=== PATIENT | female | born 1995 | race Hispanic/Latino ===

== ENCOUNTER 2018-03-19 07:31 | Emergency (ER) | payer BC ==
[2018-03-19 07:54] LABS: APPEARANCE,URINE Clear (CLEAR); BILIRUBIN,URINE Negative (NEGATIVE); COLOR,URINE Yellow (YELLOW); GLUCOSE, URINE (UA) Negative (NEGATIVE); KETONES,URINE Negative (NEGATIVE); LEUKOCYTE ESTERASE ,URINE Trace (NEGATIVE); NITRATE,URINE Negative (NEGATIVE); OCCULT BLOOD,URINE Negative (NEGATIVE); PROTEIN,URINE Negative (NEGATIVE); UROBILINOGEN,URINE 0.2 mg/dL (0.2-1.0)
[2018-03-19 07:55] LABS: HCG,QUAL RESULT NEGATIVE (NEGATIVE)
[2018-03-19 08:02] LABS: BACTERIA,URINE Rare /HPF (None Seen); RBC,URINE 0-1 /HPF (0-1); WBC,URINE 0-1 /HPF (0-1)
[2018-03-19 08:03] LABS: SQUAMOUS EPITHELIAL CELL,UR Few /HPF (0-2)
[2018-03-19] MEDS ORDERED: HYOSCYAMINE SULFATE 0.125 MG TAB.SUBL SL ONE (08:23)
[2018-03-19 08:37] LABS: BASOPHILS % (AUTO) 0.6 % (0.0-5.0); EOSINOPHILS % (AUTO) 2.1 % (0.0-8.0); LYMPHOCYTES % (AUTO) 22.9 % (21.0-51.0); MEAN CORPUSCULAR HEMOGLOBIN 28.5 pg (27.0-33.0); MEAN CORPUSCULAR HGB CONC 33.8 g/dL (32.0-36.0); MEAN CORPUSCULAR VOLUME 84.3 fL (79-99); MONOCYTES % (AUTO) 9.3 % (3.0-13.0); NEUTROPHILS % (AUTO) 65.1 % (40.0-77.0); PLATELET COUNT (AUTO) 322 K/uL (130-400); RED BLOOD CELL COUNT(AUTO) 4.86 MIL/uL (4.00-5.50); WHITE BLOOD COUNT (AUTO) 7.8 K/uL (4.8-10.8)
[2018-03-19 08:43] LABS: CREATININE 0.6 mg/dL (0.5-1.5); POTASSIUM 3.9 mmol/L (3.5-5.1)
[2018-03-19 08:48] LABS: ALBUMIN 3.8 g/dL (3.5-5.0); BILIRUBIN,TOTAL 0.3 mg/dL (0.2-1.0); TOTAL PROTEIN, SERUM 8.1 g/dL (6.0-8.3)
== END 2018-03-19 09:23 | disposition home or self-care (01) ==
LOC: EDH 07:31
DX: R10.30 Lower abdominal pain, unspecified (principal); R14.0 Abdominal distension (gaseous); M54.5 Low back pain
CPT/HCPCS: 36415; 80053; 81001; 81025; 82150; 83690; 85025

== ENCOUNTER 2018-03-19 14:24 | Emergency (ER) | payer BC | END 2018-03-19 14:37 | disposition left against medical advice (07) | LOC: EDH 14:24 | DX: Z53.21 Procedure and treatment not carried out due to patient leaving prior to being seen by health care provider (principal) ==

== ENCOUNTER 2020-02-13 21:15 | Emergency (ER) | payer BC, MEDICAID ==
[2020-02-13 22:11] LABS: BASOPHILS % (AUTO) 0.4 % (0.0-5.0); EOSINOPHILS % (AUTO) 1.8 % (0.0-8.0); HEMATOCRIT 41.1 % (36-48); LYMPHOCYTES % (AUTO) 24.5 % (21.0-51.0); MEAN CORPUSCULAR HEMOGLOBIN 28.8 pg (27.0-33.0); MEAN CORPUSCULAR HGB CONC 32.8 g/dL (32.0-36.0); MEAN CORPUSCULAR VOLUME 87.8 fL (79-99); MONOCYTES % (AUTO) 8.1 % (3.0-13.0); NEUTROPHILS % (AUTO) 64.9 % (40.0-77.0); PLATELET COUNT (AUTO) 354 K/uL (130-400); RED BLOOD CELL COUNT(AUTO) 4.68 MIL/uL (4.00-5.50); RED CELL DISTRIBUTION WIDTH 13.2 % (11.0-15.5); WHITE BLOOD COUNT (AUTO) 9.8 K/uL (4.8-10.8)
[2020-02-13 22:21] LABS: CREATININE 0.7 mg/dL (0.5-1.5); POTASSIUM 3.4 mmol/L (3.5-5.1)
[2020-02-13 22:47] LABS: BILIRUBIN,TOTAL 0.3 mg/dL (0.2-1.0); TOTAL PROTEIN, SERUM 8.4 g/dL (6.0-8.3)
== END 2020-02-13 23:32 | disposition home or self-care (01) ==
LOC: EDH 21:15
DX: O20.0 Threatened abortion (principal); Z3A.01 Less than 8 weeks gestation of pregnancy
CPT/HCPCS: 36415; 76801; 80053; 84702; 85025; 86850; 86900; 86901

== ENCOUNTER 2021-10-08 17:45 | Emergency (ER) | payer BC, MEDICAID ==
[~2021-10-08] VITALS: Ht 160 cm; Wt 98.0 kg
[2021-10-08 18:21] LABS: HCG,QUALITATIVE URINE NEGATIVE (NEGATIVE)
[2021-10-08] MEDS ORDERED: 0.9%NACL 1000ML 1,000 ML IV ONE (18:30)
[2021-10-08 18:40] LABS: BILIRUBIN,URINE Negative (NEGATIVE); COLOR,URINE Yellow (YELLOW); GLUCOSE, URINE (UA) Negative (NEGATIVE); KETONES,URINE Negative (NEGATIVE); LEUKOCYTE ESTERASE ,URINE Trace (NEGATIVE); NITRATE,URINE Negative (NEGATIVE); OCCULT BLOOD,URINE Negative (NEGATIVE); PH,URINE 6.5 (5.0-8.0); PROTEIN,URINE Negative (NEGATIVE); UROBILINOGEN,URINE 0.2 mg/dL (0.2-1.0)
[2021-10-08 18:41] LABS: APPEARANCE,URINE SLIGHTLY CLOUDY (CLEAR)
[2021-10-08 18:43] LABS: BASOPHILS % (AUTO) 0.6 % (0.0-5.0); EOSINOPHILS % (AUTO) 1.5 % (0.0-8.0); HEMATOCRIT 32.9 % (36-48); LYMPHOCYTES % (AUTO) 22.2 % (21.0-51.0); MEAN CORPUSCULAR HEMOGLOBIN 28.6 pg (27.0-33.0); MEAN CORPUSCULAR HGB CONC 32.2 g/dL (32.0-36.0); MEAN CORPUSCULAR VOLUME 88.9 fL (79-99); MONOCYTES % (AUTO) 8.7 % (3.0-13.0); NEUTROPHILS % (AUTO) 66.9 % (40.0-77.0); PLATELET COUNT (AUTO) 258 K/uL (130-400); RED CELL DISTRIBUTION WIDTH 13.2 % (11.0-15.5); WHITE BLOOD COUNT (AUTO) 7.2 K/uL (4.8-10.8)
[2021-10-08 18:43] LABS: BACTERIA,URINE Few /HPF (None Seen); RBC,URINE None Seen /HPF (0-1)
[2021-10-08 19:01] LABS: CREATININE 0.7 mg/dL (0.5-1.5); POTASSIUM 4.1 mmol/L (3.5-5.1)
[2021-10-08 19:06] LABS: ALBUMIN 4.2 g/dL (3.5-5.0); TOTAL PROTEIN, SERUM 8.1 g/dL (6.0-8.3)
[2021-10-08] MEDS ORDERED: MECLIZINE HCL 25 MG TABLET PO ONE (19:30)
[2021-10-08] MEDS ORDERED: ONDANSETRON 4MG INJ IVP ONE (19:30)
[2021-10-08] MEDS ORDERED: ONDA4TAB10 PO (20:35)
[2021-10-08 21:19] VITALS: BP 118/54
== END 2021-10-08 21:21 | disposition home or self-care (01) ==
LOC: EDH 17:45
DX: H81.12 Benign paroxysmal vertigo, left ear (principal); F41.9 Anxiety disorder, unspecified
CPT/HCPCS: 99283; 96374; 96361; 80053; 85025; 81001; 81025; 36415; J7030; J2405

== ENCOUNTER 2021-10-13 10:24 | Emergency (ER) | payer MEDICAID ==
[~2021-10-13] VITALS: Ht 160 cm; Wt 94.8 kg
[~2021-10-13 10:24] MED LIST: ONDA4TAB10 PO
[2021-10-13 11:17] LABS: CREATININE 0.7 mg/dL (0.5-1.5); POTASSIUM 3.6 mmol/L (3.5-5.1)
[2021-10-13 11:22] LABS: ALBUMIN 4.4 g/dL (3.5-5.0); TOTAL PROTEIN, SERUM 8.6 g/dL (6.0-8.3)
[2021-10-13 11:26] LABS: BASOPHILS % (AUTO) 0.4 % (0.0-5.0); EOSINOPHILS % (AUTO) 0.1 % (0.0-8.0); HEMATOCRIT 43.4 % (36-48); LYMPHOCYTES % (AUTO) 12.7 % (21.0-51.0); MEAN CORPUSCULAR HEMOGLOBIN 29.1 pg (27.0-33.0); MEAN CORPUSCULAR HGB CONC 33.6 g/dL (32.0-36.0); MEAN CORPUSCULAR VOLUME 86.6 fL (79-99); MONOCYTES % (AUTO) 4.6 % (3.0-13.0); NEUTROPHILS % (AUTO) 81.9 % (40.0-77.0); PLATELET COUNT (AUTO) 354 K/uL (130-400); RED BLOOD CELL COUNT(AUTO) 5.01 MIL/uL (4.00-5.50); WHITE BLOOD COUNT (AUTO) 9.7 K/uL (4.8-10.8)
[2021-10-13 11:37] LABS: BILIRUBIN,URINE NEGATIVE (NEGATIVE); COLOR,URINE YELLOW (YELLOW); GLUCOSE, URINE (UA) NEGATIVE (NEGATIVE); KETONES,URINE NEGATIVE (NEGATIVE); LEUKOCYTE ESTERASE ,URINE NEGATIVE (NEGATIVE); NITRATE,URINE NEGATIVE (NEGATIVE); OCCULT BLOOD,URINE NEGATIVE (NEGATIVE); PROTEIN,URINE NEGATIVE (NEGATIVE); UROBILINOGEN,URINE 0.2 mg/dL (0.2-1.0)
[2021-10-13 11:39] LABS: APPEARANCE,URINE CLEAR (CLEAR)
[2021-10-13 11:41] LABS: HCG,QUALITATIVE URINE NEGATIVE (NEGATIVE)
[2021-10-13] MEDS ORDERED: 0.9%NACL 1000ML 1,000 ML IV SCH (12:30)
[2021-10-13] MEDS ORDERED: PROMETHAZINE HCL 25 MG/ML 1ML AMPULE IVPB SCH (12:30)
[2021-10-13] MEDS ORDERED: KETOROLAC 30MG VIAL (30MG/ML) IVP ONE (12:30)
[2021-10-13] MEDS ORDERED: CYCLOBENZAPRINE HCL 10 MG TABLET PO ONE (12:30)
[2021-10-13 13:16] LABS: AMPHET/METH SCREEN,URINE NEGATIVE (NEGATIVE); BARBITURATE SCREEN, URINE NEGATIVE (NEGATIVE); BENZODIAZEPINES SCREEN,URINE NEGATIVE (NEGATIVE); CANNABINOID SCREEN,URINE NEGATIVE (NEGATIVE); COCAINE SCREEN,URINE NEGATIVE (NEGATIVE); OPIATE SCREEN,URINE NEGATIVE (NEGATIVE); PHENCYCLIDINE SCREEN,URINE NEGATIVE (NEGATIVE)
[2021-10-13] MEDS ORDERED: ONDA4TAB10 PO (14:04)
[2021-10-13] MEDS ORDERED: MECL-226 PO (14:04)
[2021-10-13] MEDS ORDERED: NAPR-1180 PO (14:04)
[2021-10-13 14:22] VITALS: BP 117/79
== END 2021-10-13 15:02 | disposition home or self-care (01) ==
LOC: EDH 10:24
DX: R42 Dizziness and giddiness (principal); G44.209 Tension-type headache, unspecified, not intractable; E86.0 Dehydration; A08.4 Viral intestinal infection, unspecified; Z20.822 Contact with and (suspected) exposure to COVID-19; F41.9 Anxiety disorder, unspecified; E66.9 Obesity, unspecified; Z68.37 Body mass index [BMI] 37.0-37.9, adult; Z79.899 Other long term (current) drug therapy
CPT/HCPCS: 99285; 70450; 71045; 87635; 84484; 80053; 80305; 85025; 87804 ×2; 81003; 81025; 36415; 93005; C9803; J1885; J2550

== ENCOUNTER 2021-11-04 08:16 | Emergency (ER) | payer MEDICAID, OTHER ==
[~2021-11-04] VITALS: Ht 160 cm; Wt 93.4 kg
[~2021-11-04 08:16] MED LIST changes: +MECL-226 PO; +NAPR-1180 PO
[2021-11-04 08:22] VITALS: BP 115/71
[2021-11-04 08:55] LABS: BASOPHILS % (AUTO) 0.6 % (0.0-5.0); EOSINOPHILS % (AUTO) 1.3 % (0.0-8.0); HEMATOCRIT 40.1 % (36-48); LYMPHOCYTES % (AUTO) 12.1 % (21.0-51.0); MEAN CORPUSCULAR HEMOGLOBIN 29.6 pg (27.0-33.0); MEAN CORPUSCULAR HGB CONC 33.4 g/dL (32.0-36.0); MEAN CORPUSCULAR VOLUME 88.5 fL (79-99); MONOCYTES % (AUTO) 7.5 % (3.0-13.0); NEUTROPHILS % (AUTO) 78.1 % (40.0-77.0); PLATELET COUNT (AUTO) 336 K/uL (130-400); RED BLOOD CELL COUNT(AUTO) 4.53 MIL/uL (4.00-5.50); RED CELL DISTRIBUTION WIDTH 13.1 % (11.0-15.5); WHITE BLOOD COUNT (AUTO) 8.4 K/uL (4.8-10.8)
[2021-11-04 09:00] LABS: APPEARANCE,URINE CLEAR (CLEAR); BILIRUBIN,URINE NEGATIVE (NEGATIVE); COLOR,URINE YELLOW (YELLOW); GLUCOSE, URINE (UA) NEGATIVE (NEGATIVE); KETONES,URINE NEGATIVE (NEGATIVE); LEUKOCYTE ESTERASE ,URINE NEGATIVE (NEGATIVE); NITRATE,URINE NEGATIVE (NEGATIVE); OCCULT BLOOD,URINE NEGATIVE (NEGATIVE); PH,URINE 6.5 (5.0-8.0); PROTEIN,URINE NEGATIVE (NEGATIVE); UROBILINOGEN,URINE 0.2 mg/dL (0.2-1.0)
[2021-11-04] MEDS ORDERED: 0.9%NACL 1000ML 1,000 ML IV ONE (09:00)
[2021-11-04 09:03] LABS: CREATININE 0.8 mg/dL (0.5-1.5); POTASSIUM 4.1 mmol/L (3.5-5.1)
[2021-11-04 09:05] LABS: HCG,QUALITATIVE URINE NEGATIVE (NEGATIVE)
[2021-11-04 09:07] LABS: ALBUMIN 4.2 g/dL (3.5-5.0); TOTAL PROTEIN, SERUM 7.7 g/dL (6.0-8.3)
[2021-11-04] MEDS ORDERED: DICL20GE TP (11:05)
== END 2021-11-04 11:21 | disposition home or self-care (01) ==
LOC: EDH 08:16
DX: G44.209 Tension-type headache, unspecified, not intractable (principal); Z79.1 Long term (current) use of non-steroidal anti-inflammatories (NSAID)
CPT/HCPCS: 99284; 96360; 70450; 80053; 85025; 81003; 81025; 36415; J7030

== ENCOUNTER 2021-11-16 11:32 | Emergency (ER) | payer MEDICAID ==
[~2021-11-16] VITALS: Ht 157.5 cm; Wt 92.1 kg
[~2021-11-16 11:32] MED LIST changes: +DICL20GE TP
[2021-11-16] MEDS ORDERED: DEXAMETHASONE SOD PHOSPHATE 4 MG/ML 1ML VIAL IM SCH (11:40)
[2021-11-16] MEDS ORDERED: KETOROLAC 30MG VIAL (30MG/ML) IM SCH (11:40)
[2021-11-16] MEDS ORDERED: DEXAMETHASONE SOD PHOSPHATE 4 MG/ML 1ML VIAL ONE (11:54)
[2021-11-16] MEDS ORDERED: KETOROLAC 30MG VIAL (30MG/ML) ONE (11:54)
[2021-11-16] MEDS ORDERED: PRED5TAB PO (12:18)
[2021-11-16] MEDS ORDERED: LORA10TA7 PO (12:18)
[2021-11-16 12:44] VITALS: BP 108/72
== END 2021-11-16 12:47 | disposition home or self-care (01) ==
LOC: EDH 11:32
DX: H69.83 Other specified disorders of Eustachian tube, bilateral (principal); Z79.1 Long term (current) use of non-steroidal anti-inflammatories (NSAID); Z79.52 Long term (current) use of systemic steroids
CPT/HCPCS: 81025; J1100; J1885

== ENCOUNTER 2021-12-03 20:08 | Emergency (ER) | payer MEDICAID ==
[~2021-12-03] VITALS: Ht 160 cm; Wt 92.1 kg
[~2021-12-03 20:08] MED LIST changes: +LORA10TA7 PO; +PRED5TAB PO
[2021-12-03 20:57] LABS: BASOPHILS % (AUTO) 0.5 % (0.0-5.0); EOSINOPHILS % (AUTO) 1.6 % (0.0-8.0); HEMATOCRIT 38.3 % (36-48); LYMPHOCYTES % (AUTO) 31.4 % (21.0-51.0); MEAN CORPUSCULAR HEMOGLOBIN 29.6 pg (27.0-33.0); MEAN CORPUSCULAR HGB CONC 33.7 g/dL (32.0-36.0); MEAN CORPUSCULAR VOLUME 87.8 fL (79-99); MONOCYTES % (AUTO) 10.4 % (3.0-13.0); NEUTROPHILS % (AUTO) 55.9 % (40.0-77.0); PLATELET COUNT (AUTO) 340 K/uL (130-400); RED BLOOD CELL COUNT(AUTO) 4.36 MIL/uL (4.00-5.50); RED CELL DISTRIBUTION WIDTH 12.9 % (11.0-15.5); WHITE BLOOD COUNT (AUTO) 10.6 K/uL (4.8-10.8)
[2021-12-03 21:04] LABS: CREATININE 0.7 mg/dL (0.5-1.5); POTASSIUM 3.1 mmol/L (3.5-5.1)
[2021-12-03 21:13] LABS: ALBUMIN 3.7 g/dL (3.5-5.0); TOTAL PROTEIN, SERUM 7.1 g/dL (6.0-8.3)
[2021-12-03 21:37] LABS: HCG,QUALITATIVE URINE NEGATIVE (NEGATIVE)
[2021-12-03 21:42] LABS: APPEARANCE,URINE CLEAR (CLEAR); BILIRUBIN,URINE NEGATIVE (NEGATIVE); COLOR,URINE COLORLESS (YELLOW); GLUCOSE, URINE (UA) NEGATIVE (NEGATIVE); KETONES,URINE NEGATIVE (NEGATIVE); LEUKOCYTE ESTERASE ,URINE 25 Leu/uL (NEGATIVE); NITRATE,URINE NEGATIVE (NEGATIVE); OCCULT BLOOD,URINE NEGATIVE (NEGATIVE); PH,URINE 5.5 (5.0-8.0); PROTEIN,URINE NEGATIVE (NEGATIVE); UROBILINOGEN,URINE 0.2 mg/dL (0.2-1.0)
[2021-12-03 22:02] LABS: BACTERIA,URINE RARE /HPF (None Seen); MUCUS,URINE RARE LPF (None Seen); SQUAMOUS EPITHELIAL CELL,UR RARE /HPF (0-2)
[2021-12-03] MEDS ORDERED: POTASSIUM BICARB/CIT AC 25 MEQ TABLET.EFF PO ONE (22:30)
[2021-12-03 22:34] VITALS: BP 122/68
== END 2021-12-03 22:59 | disposition home or self-care (01) ==
LOC: EDH 20:08
DX: R68.84 Jaw pain (principal); M79.602 Pain in left arm; R07.89 Other chest pain; Z79.899 Other long term (current) drug therapy
CPT/HCPCS: 36415; 80053; 81001; 81025; 84484; 85025; 93005

== ENCOUNTER 2021-12-15 19:13 | Emergency (ER) | payer MEDICAID ==
[~2021-12-15] VITALS: Ht 160 cm; Wt 93.9 kg
[2021-12-15 20:00] LABS: APPEARANCE,URINE CLEAR (CLEAR); BILIRUBIN,URINE NEGATIVE (NEGATIVE); COLOR,URINE COLORLESS (YELLOW); GLUCOSE, URINE (UA) NEGATIVE (NEGATIVE); KETONES,URINE NEGATIVE (NEGATIVE); LEUKOCYTE ESTERASE ,URINE NEGATIVE Leu/uL (NEGATIVE); NITRATE,URINE NEGATIVE (NEGATIVE); OCCULT BLOOD,URINE NEGATIVE (NEGATIVE); PROTEIN,URINE NEGATIVE (NEGATIVE); UROBILINOGEN,URINE 0.2 mg/dL (0.2-1.0)
[2021-12-15 20:06] LABS: HCG,QUALITATIVE URINE NEGATIVE (NEGATIVE)
[2021-12-15 21:00] LABS: BASOPHILS % (AUTO) 0.6 % (0.0-5.0); EOSINOPHILS % (AUTO) 1.8 % (0.0-8.0); HEMATOCRIT 39.6 % (36-48); LYMPHOCYTES % (AUTO) 32.3 % (21.0-51.0); MEAN CORPUSCULAR HEMOGLOBIN 29.8 pg (27.0-33.0); MEAN CORPUSCULAR HGB CONC 33.8 g/dL (32.0-36.0); MONOCYTES % (AUTO) 9.4 % (3.0-13.0); NEUTROPHILS % (AUTO) 55.8 % (40.0-77.0); PLATELET COUNT (AUTO) 309 K/uL (130-400); RED CELL DISTRIBUTION WIDTH 13.2 % (11.0-15.5); WHITE BLOOD COUNT (AUTO) 8.3 K/uL (4.8-10.8)
[2021-12-15] MEDS ORDERED: KETOROLAC 30MG VIAL (30MG/ML) IVP ONE (21:00)
[2021-12-15 21:10] LABS: CREATININE 0.6 mg/dL (0.5-1.5); POTASSIUM 3.4 mmol/L (3.5-5.1)
[2021-12-15] MEDS ORDERED: CEPH500B PO (21:48)
[2021-12-15 21:50] VITALS: BP 121/63
== END 2021-12-15 22:02 | disposition home or self-care (01) ==
LOC: EDH 19:13
DX: J01.90 Acute sinusitis, unspecified (principal); Z79.1 Long term (current) use of non-steroidal anti-inflammatories (NSAID); Z79.52 Long term (current) use of systemic steroids
CPT/HCPCS: 99284; 96374; 70450; 80048; 85025; 81003; 81025; 36415; J1885

== ENCOUNTER 2022-01-25 17:22 | Emergency (ER) | payer MEDICAID ==
[~2022-01-25] VITALS: Ht 157.5 cm; Wt 95.3 kg
[~2022-01-25 17:22] MED LIST changes: +CEPH500B PO
[2022-01-25 19:33] VITALS: BP 116/62
[2022-01-25] MEDS ORDERED: CYCL5TAB PO (19:50)
== END 2022-01-25 20:05 | disposition home or self-care (01) ==
LOC: EDH 17:22
DX: M62.838 Other muscle spasm (principal); R42 Dizziness and giddiness; Z79.1 Long term (current) use of non-steroidal anti-inflammatories (NSAID); Z79.52 Long term (current) use of systemic steroids; Z88.8 Allergy status to other drugs, medicaments and biological substances
CPT/HCPCS: 81025

== ENCOUNTER → 2022-05-09 | Outpatient (CLI) | payer MEDICAID ==
[~2022-05-09] MED LIST changes: +CYCL5TAB PO
== END | disposition home or self-care (01) ==
LOC: SHCH 10:51
PROVIDERS: ATTEND Internal Medicine
DX: R00.2 Palpitations (principal)
CPT/HCPCS: 93306

== ENCOUNTER 2022-07-07 09:08 | Emergency (ER) | payer MEDICAID ==
[~2022-07-07] VITALS: Ht 160 cm; Wt 95.3 kg
[2022-07-07 10:23] LABS: BASOPHILS % (AUTO) 0.6 % (0.0-5.0); HEMATOCRIT 43.9 % (36-48); LYMPHOCYTES % (AUTO) 18.1 % (21.0-51.0); MEAN CORPUSCULAR HEMOGLOBIN 29.3 pg (27.0-33.0); MEAN CORPUSCULAR HGB CONC 32.3 g/dL (32.0-36.0); MEAN CORPUSCULAR VOLUME 90.7 fL (79-99); MONOCYTES % (AUTO) 7.3 % (3.0-13.0); NEUTROPHILS % (AUTO) 71.6 % (40.0-77.0); PLATELET COUNT (AUTO) 327 K/uL (130-400); RED BLOOD CELL COUNT(AUTO) 4.84 MIL/uL (4.00-5.50); RED CELL DISTRIBUTION WIDTH 13.6 % (11.0-15.5); WHITE BLOOD COUNT (AUTO) 8.1 K/uL (4.8-10.8)
[2022-07-07 10:52] LABS: CREATININE 0.6 mg/dL (0.5-1.5); POTASSIUM 4.4 mmol/L (3.5-5.1)
[2022-07-07 10:56] LABS: ALBUMIN 3.8 g/dL (3.5-5.0); TOTAL PROTEIN, SERUM 7.9 g/dL (6.0-8.3)
[2022-07-07] MEDS ORDERED: 0.9%NACL 1000ML 1,000 ML IV ONE (13:00)
[2022-07-07] MEDS ORDERED: ONDANSETRON 4MG INJ IVP ONE (13:00)
[2022-07-07 13:05] LABS: APPEARANCE,URINE CLOUDY (CLEAR); BILIRUBIN,URINE NEGATIVE (NEGATIVE); COLOR,URINE BROWN (YELLOW); GLUCOSE, URINE (UA) NEGATIVE (NEGATIVE); KETONES,URINE NEGATIVE (NEGATIVE); LEUKOCYTE ESTERASE ,URINE 75 Leu/uL (NEGATIVE); NITRATE,URINE NEGATIVE (NEGATIVE); OCCULT BLOOD,URINE LARGE (NEGATIVE); PH,URINE 6.5 (5.0-8.0); PROTEIN,URINE 50 mg/dL (NEGATIVE); UROBILINOGEN,URINE 0.2 mg/dL (0.2-1.0)
[2022-07-07 13:08] LABS: HCG,QUALITATIVE URINE NEGATIVE (NEGATIVE)
[2022-07-07 13:10] LABS: MUCUS,URINE RARE LPF (None Seen); RBC,URINE TNTC /HPF (0-1); SQUAMOUS EPITHELIAL CELL,UR MOD /HPF (0-2); WBC,URINE 51-100 /HPF (0-1)
[2022-07-07] MEDS ORDERED: ONDA4TAB10 PO (13:30)
[2022-07-07 13:36] VITALS: BP 124/60
== END 2022-07-07 13:43 | disposition home or self-care (01) ==
LOC: EDH 09:08
DX: H81.10 Benign paroxysmal vertigo, unspecified ear (principal); Z88.8 Allergy status to other drugs, medicaments and biological substances; Z79.899 Other long term (current) drug therapy; Z98.890 Other specified postprocedural states
CPT/HCPCS: 99283; 80053; 83690; 85025; 87088; 81001; 81025; 36415; J2405

== ENCOUNTER 2022-10-28 11:47 | Emergency (ER) | payer MEDICAID ==
[~2022-10-28] VITALS: Ht 160 cm; Wt 95.3 kg
[2022-10-28 12:23] VITALS: BP 110/68; PULSE 73; RESP 18
== END 2022-10-28 14:21 | disposition home or self-care (01) ==
LOC: EDH 11:47
DX: O26.891 Other specified pregnancy related conditions, first trimester (principal); M79.18 Myalgia, other site; Z79.1 Long term (current) use of non-steroidal anti-inflammatories (NSAID); Z79.52 Long term (current) use of systemic steroids; Z88.8 Allergy status to other drugs, medicaments and biological substances
CPT/HCPCS: 99281

== ENCOUNTER 2023-01-04 19:40 | Emergency (ER) | payer MEDICAID | END 2023-01-04 21:01 | disposition left against medical advice (07) | LOC: EDH 19:40 | DX: R51.9 Headache, unspecified (principal); Z53.21 Procedure and treatment not carried out due to patient leaving prior to being seen by health care provider ==

== ENCOUNTER 2024-02-27 10:06 | Emergency (ER) | payer MEDICAID ==
[~2024-02-27] VITALS: Ht 157.5 cm; Wt 99.8 kg
[~2024-02-27 10:06] MED LIST changes: -CYCL5TAB PO; +CYCL5TAB3 PO; +ONDA-243 PO; -ONDA4TAB10 PO
--- NOTE | 2024-02-27 10:15 | ERN ---
ED Note History of Present Illness Stated Complaint: VAGINALBLEEDING Time Seen by MD: 10:09 Dictation: Patient is a 28-year-old female coming in today with complaints of vaginal bleeding onset Thursday. She states she is having no pain at this time. States her. He is not due for 10 more days. She has already been to the urgent care who did not have an carton filling machine operator and told her to go to the emergency room if she needed to be seen. Her primary care doctor is Zahra Zamora, she states she is not . Allergies: Coded Allergies: No Known Drug Allergies (Unverified Allergy, Unknown, 10/08/21) prednisone (Unverified Allergy, Unknown, 01/25/22) Home Meds Active Scripts Ondansetron (Ondansetron Odt) 4 Mg Tab.rapdis, 4 MG PO TID PRN for NA USEA/VOMITING, #10 TAB Prov:SARAN HANEY EYEGLASS INSPECTOR 07/07/22 Cyclobenzaprine HCl (Cyclobenzaprine HCl) 5 Mg Tablet, 10 MG PO every 8 hours for spasm pain, #21 TAB Prov:JEANNE MCKOY NP 01/25/22 Cephalexin Monohydrate (Keflex) 500 Mg Cap, 500 MG PO TID for 7 Days, #21 CAP 0 Refills Prov:LOC FRIEDMAN MD 12/15/21 Prednisone (Prednisone) 5 Mg Tablet, 5 MG PO BID for 10 Days, #20 TAB Prov:CHEKO QUIÑONES MD 11/16/21 Loratadine (Loratadine) 10 Mg Tablet, 10 MG PO DAILY for 30 Days, #30 TAB Prov:CHEKO QUIÑONES MD 11/16/21 Diclofenac Sodium (Voltaren Arthritis Pain) 20 Gm Gel..gram., 20 GM TP BID for 7 Days, #30 TUBE Prov:CHEKO QUIÑONES MD 11/04/21 Ondansetron (Ondansetron Odt) 4 Mg Tab.rapdis, 4 MG PO TIDP, #21 TAB Prov:DANO AVELAR 10/13/21 Naproxen (Naprosyn) 500 Mg Tablet, 500 MG PO BIDPC, #60 TAB Prov:DANO AVELAR 10/13/21 Meclizine HCl (Meclizine HCl) 12.5 Mg Tablet, 12.5 MG PO TID, #30 TAB Prov:DANO AVELAR 10/13/21 Ondansetron (Ondansetron Odt) 4 Mg Tab.rapdis, 4 MG PO TID PRN for NAUSEA/VOMITING, #15 TAB Prov:SARAN HANEY EYEGLASS INSPECTOR 10/08/21 Past Medical History Past Medical History: No Pertinent History Additional Past Medical Hx: VERTIGO Surgical History: None Surgical History Other: RT EAR TUBE PLACEMENT Family History: Negative Social History: Negative, Other History: Not Applicable RN Note Reviewed/Agreed w/PFSH: Yes Review of System Dictation CONSTITUTIONAL: Negative except for HPI HEAD/FACE: Negative except for HPI EENT: Negative except for HPI RESPIRATORY: Negative except for HPI GASTROINTESTINAL/ABDOMINAL: Negative except for HPI GENITOURINARY: Negative except for HPI vaginal bleeding MUSCULOSKELETAL: Negative except for HPI INTEGUMENTARY: Negative except for HPI NEUROLOGICAL/PSYCH: Negative except for HPI HEMATOLOGIC/LYMPHATIC: Negative except for HPI All Systems Negative, Except as noted above. 13 point review of systems assessed and all negative except for above. Initial Vital Sign VS Vital Signs Date Time Temp Pulse Resp B/P (MAP) Pulse Ox O2 Delivery O2 Flow Rate FiO2 02/27/24 10:34 74 16 74/107 99 Room Air 0 Physical Exam Dictation Vital Signs reviewed 0/10 pain General Appearance: Alert, oriented x 3, no acute distress, well developed, nourished. Head and Face: non-traumatic. Eyes: PERRL, pink conjunctivas, eyelid no trauma, anterior chamber with arcus senilis. Ears: Pinnas intact and no signs of trauma or erythema ear canals clear and no discharge TM no erythema Nose: No discharge, no bleeding. Oropharynx: Mouth normal, tongue pink, pharynx clear,no erythema, tonsils no exudates, no abscesses noted, mucous membrane moist Neck: Supple, non-tender, no thyromegaly, no masses, no JVD, no bruits Breast:Deferred Chest:No tenderness, no crepitus, no paradoxical movement, no retractions Lungs:Clear, well-ventilated, symmetric, no rales, no wheezing, no rhonchi, no stridor, good breath sounds bilaterally Heart: Regular rate, regular rhythm, no murmur, no gallops Vascular: no peripheral edema, Abdomen: Soft, positive bowel sounds, nondistended, no guarding, nontender, no rebound, no masses no hepatomegaly, no splenomegaly, no Rosario's sign, no hernias. Rectal: Deferred Genital: Deferred Neurological: Normal speech, motor function intact, sensory function intact Musculoskeletal: Neck nontender, full range of motion, back nontender, full range of motion, Extremities: nontender, full range of motion Skin: Color pink, dry, no turgor, no rash, no lacerations, no abrasions, no contusions. Lymphatic: Deferred Results (Laboratory/Radiology) Laboratory/Radiology Laboratory Tests Test 02/27/24 10:29 White Blood Count 6.6 K/uL (4.8-10.8) Red Blood Count 4.63 MIL/uL (4.00-5.50) Hemoglobin 13.3 g/dL (12.0-16.0) Hematocrit 41.1 % (36-48) Mean Corpuscular Volume 88.8 fL (79-99) Mean Corpuscular Hemoglobin 28.7 pg (27.0-33.0) Mean Corpuscular Hemoglobin Concent 32.4 g/dL (32.0-36.0) Red Cell Distribution Width 13.2 % (11.0-15.5) Platelet Count 314 K/uL (130-400) Mean Platelet Volume 9.6 fL (7.5-10.5) Immature Granulocyte % (Auto) 0.3 % (0-1) Neutrophils (%) (Auto) 57.1 % (40.0-77.0) Lymphocytes (%) (Auto) 29.1 % (21.0-51.0) Monocytes (%) (Auto) 9.5 % (3.0-13.0) Eosinophils (%) (Auto) 3.2 % (0.0-8.0) Basophils (%) (Auto) 0.8 % (0.0-5.0) Neutrophils # (Auto) 3.8 K/uL (1.8-7.7) Lymphocytes # (Auto) 1.9 K/uL (1.0-4.8) Monocytes # (Auto) 0.6 K/uL (0.1-1.0) Eosinophils # (Auto) 0.21 K/uL (0.00-0.70) Basophils # (Auto) 0.05 K/uL (0.00-0.20) Absolute Immature Granulocyte (auto 0.02 K/uL (0-1) Nucleated Red Blood Cells 0.0 % (0.0-0.19) Sodium Level 144 mmol/L (136-145) Potassium Level 4.1 mmol/L (3.5-5.1) Chloride Level 105 mmol/L (101-111) Carbon Dioxide Level 31 mmol/L (21-32) Blood Urea Nitrogen 15 mg/dL (7-18) Creatinine 0.6 mg/dL (0.5-1.0) Glomerular Filtration Rate Calc 125 mL/min (>90) Random Glucose 82 mg/dL (70-105) Total Calcium 8.9 mg/dL (8.5-10.1) Human Chorionic Gonadotropin, Quant 0 mIU/mL (0-5) Labs Reviewed?: Yes ED Course ED Course Orders Procedure Category Date Status Time Cbc With Differential LAB 02/27/24 Complete 10:13 Hcg,Quantitative LAB 02/27/24 Complete 10:13 Basic Metabolic Panel LAB 02/27/24 Complete 10:13 Urinalysis Profile LAB 02/27/24 Logged 11:35 Vital Signs Date Time Temp Pulse Resp B/P (MAP) Pulse Ox O2 Delivery O2 Flow Rate FiO2 02/27/24 10:34 74 16 74/107 99 Room Air 0 1152, patient is hemodynamically stable H&H is normal, no at this time patient will be discharged home with name of Dr. Beltran/obgyn nurse to follow up in the next several days. Medical Decision Making MDM Medical decision-making based on basic labs to rule out anemia/electrolyte imbalance and . All labs are normal, H&H is normal, no Patient discharged home with name of Dr. Laurent Beltran to follow up at [facility] in her leisure DX & DISP Disposition: Discharge Departure Impression: Primary Impression: Dysfunctional uterine bleeding Condition: Stable Additional Instructions: Follow-up with primary care provider in 1 to 2 days. Take medications as directed here in the emergency room. Okay to continue home medications unless otherwise discussed during your visit in the emergency room today. Return to your nearest emergency room if symptoms worsen or if there is no improvement. Call 911 if you need immediate assistance. Take Tylenol or Motrin [id number] as needed and if no contraindications are present. Increase oral hydration. A wound culture or urine culture was ordered here in the emergency room department please follow-up with primary care provider and advise them to get repeat ports from our facility. If you had any Paulo wrap/splints that were applied here, please do not remove them until you see your primary care or specialty. Call obgyn nurse doctor in the next 1-2 days for an appointment and follow up. Referrals: KATHY OHPSON MD (PCP) LAURENT BELTRAN MD Time of Disposition: 11:54 I have reviewed the case, and I agree with, Diagnosis and Plan MARGARITO DEAL NP Feb 27, 2024 10:15
[2024-02-27 10:44] LABS: BASOPHILS # (AUTO) 0.05 K/uL (0.00-0.20); BASOPHILS % (AUTO) 0.8 % (0.0-5.0); EOSINOPHILS # (AUTO) 0.21 K/uL (0.00-0.70); EOSINOPHILS % (AUTO) 3.2 % (0.0-8.0); HEMATOCRIT 41.1 % (36-48); IMMATURE GRANULOCYTE ABSOLUTE 0.02 K/uL (0-1); LYMPHOCYTES # (AUTO) 1.9 K/uL (1.0-4.8); LYMPHOCYTES % (AUTO) 29.1 % (21.0-51.0); MEAN CORPUSCULAR HEMOGLOBIN 28.7 pg (27.0-33.0); MEAN CORPUSCULAR HGB CONC 32.4 g/dL (32.0-36.0); MEAN CORPUSCULAR VOLUME 88.8 fL (79-99); MONOCYTES # (AUTO) 0.6 K/uL (0.1-1.0); MONOCYTES % (AUTO) 9.5 % (3.0-13.0); NEUTROPHILS # (AUTO) 3.8 K/uL (1.8-7.7); NEUTROPHILS % (AUTO) 57.1 % (40.0-77.0); PLATELET COUNT (AUTO) 314 K/uL (130-400); RED BLOOD CELL COUNT(AUTO) 4.63 MIL/uL (4.00-5.50); RED CELL DISTRIBUTION WIDTH 13.2 % (11.0-15.5); WHITE BLOOD COUNT (AUTO) 6.6 K/uL (4.8-10.8)
[2024-02-27 10:53] LABS: CREATININE 0.6 mg/dL (0.5-1.0); POTASSIUM 4.1 mmol/L (3.5-5.1)
[2024-02-27 12:04] LABS: BILIRUBIN,URINE NEGATIVE (NEGATIVE); GLUCOSE, URINE (UA) NEGATIVE (NEGATIVE); KETONES,URINE NEGATIVE (NEGATIVE); LEUKOCYTE ESTERASE ,URINE 250 Leu/uL (NEGATIVE); NITRATE,URINE NEGATIVE (NEGATIVE); OCCULT BLOOD,URINE LARGE (NEGATIVE); PH,URINE 5.5 (5.0-8.0); PROTEIN,URINE 20 mg/dL (NEGATIVE); UROBILINOGEN,URINE 0.2 mg/dL (0.2-1.0)
[2024-02-27 12:14] LABS: ADD UA MICROSCOPIC YES; APPEARANCE,URINE HAZY (CLEAR); COLOR,URINE LIGHT-RED (YELLOW)
[2024-02-27 12:18] LABS: BACTERIA,URINE RARE /HPF (None Seen); MUCUS,URINE RARE LPF (None Seen); RBC,URINE TNTC /HPF (0-1); SQUAMOUS EPITHELIAL CELL,UR FEW /HPF (0-2)
[2024-02-27] MEDS ORDERED: MACR100 PO (12:28)
[2024-02-27 12:50] VITALS: BP 135/84; PULSE 84; RESP 18; TEMP 98.3; O2SAT 98
== END 2024-02-27 12:51 | disposition home or self-care (01) ==
LOC: EDH 10:06
DX: N93.8 Other specified abnormal uterine and vaginal bleeding (principal); R10.2 Pelvic and perineal pain; Z79.1 Long term (current) use of non-steroidal anti-inflammatories (NSAID); Z79.52 Long term (current) use of systemic steroids; Z88.8 Allergy status to other drugs, medicaments and biological substances
CPT/HCPCS: 36415; 80048; 81001; 84702; 85025; 87086; 99283

== ENCOUNTER 2024-06-21 14:37 | Emergency (ER) | payer MEDICAID, OTHER ==
[~2024-06-21] VITALS: Ht 160 cm; Wt 98.9 kg
[~2024-06-21 14:37] MED LIST changes: +MACR100 PO
[2024-06-21 15:42] LABS: APPEARANCE,URINE CLEAR (CLEAR); BILIRUBIN,URINE NEGATIVE (NEGATIVE); COLOR,URINE COLORLESS (YELLOW); GLUCOSE, URINE (UA) NEGATIVE (NEGATIVE); KETONES,URINE NEGATIVE (NEGATIVE); LEUKOCYTE ESTERASE ,URINE NEGATIVE Leu/uL (NEGATIVE); NITRATE,URINE NEGATIVE (NEGATIVE); OCCULT BLOOD,URINE NEGATIVE (NEGATIVE); PH,URINE 6.5 (5.0-8.0); PROTEIN,URINE NEGATIVE (NEGATIVE); UROBILINOGEN,URINE 0.2 mg/dL (0.2-1.0)
[2024-06-21] MEDS: ondanSETRON 4MG INJ IVP ONE (15:42)
[2024-06-21] MEDS: 0.9%NACL 1000ML 1,000 ML IV ONE (15:42)
[2024-06-21] MEDS: PANTOPrazole 40 MG/VIAL IVP ONE (15:42)
[2024-06-21 15:43] LABS: BASOPHILS # (AUTO) 0.05 K/uL (0.00-0.20); BASOPHILS % (AUTO) 0.6 % (0.0-5.0); EOSINOPHILS # (AUTO) 0.21 K/uL (0.00-0.70); EOSINOPHILS % (AUTO) 2.5 % (0.0-8.0); HEMATOCRIT 42.8 % (36-48); IMMATURE GRANULOCYTE ABSOLUTE 0.02 K/uL (0-1); LYMPHOCYTES # (AUTO) 2.1 K/uL (1.0-4.8); LYMPHOCYTES % (AUTO) 24.8 % (21.0-51.0); MEAN CORPUSCULAR HEMOGLOBIN 28.1 pg (27.0-33.0); MEAN CORPUSCULAR HGB CONC 31.8 g/dL (32.0-36.0); MEAN CORPUSCULAR VOLUME 88.4 fL (79-99); MONOCYTES # (AUTO) 0.7 K/uL (0.1-1.0); MONOCYTES % (AUTO) 7.8 % (3.0-13.0); NEUTROPHILS # (AUTO) 5.5 K/uL (1.8-7.7); NEUTROPHILS % (AUTO) 64.1 % (40.0-77.0); PLATELET COUNT (AUTO) 318 K/uL (130-400); RED BLOOD CELL COUNT(AUTO) 4.84 MIL/uL (4.00-5.50); RED CELL DISTRIBUTION WIDTH 13.4 % (11.0-15.5); WHITE BLOOD COUNT (AUTO) 8.6 K/uL (4.8-10.8)
[2024-06-21 15:43] LABS: ADD UA MICROSCOPIC NO
[2024-06-21 15:46] LABS: HCG,QUALITATIVE URINE NEGATIVE (NEGATIVE)
[2024-06-21] MEDS: morPHINE 4 MG SYG IVP ONE (15:47)
--- NOTE | 2024-06-21 15:57 | HMCIMG ---
US ABDOMINAL RUQ\E\LTD HISTORY: Right upper quadrant pain COMPARISON: None TECHNIQUE: Right upper quadrant abdominal ultrasound study was performed. FINDINGS: Liver measures 17.4 cm. The visualized portion of the pancreas is within normal limits. Liver is echogenic consistent with liver parenchymal disease. No gallstone is seen. Common duct measures 5 mm. No evidence of gallbladder wall thickening is seen. Right kidney measures 11.1 x 4.2 x 4.5 cm. No hydronephrosis is seen of the right kidney. IMPRESSION: 1. No gallstones or ductal dilatation is seen. 2. No hydronephrosis is seen.
[2024-06-21 16:01] LABS: CREATININE 0.6 mg/dL (0.5-1.0); POTASSIUM 3.4 mmol/L (3.5-5.1)
[2024-06-21 16:05] LABS: ALBUMIN 3.8 g/dL (3.5-5.0); BILIRUBIN,DIRECT 0.1 mg/dL (0.0-0.3); BILIRUBIN,TOTAL 0.4 mg/dL (0.2-1.0); TOTAL PROTEIN, SERUM 7.7 g/dL (6.0-8.3)
[2024-06-21] MEDS ORDERED: ONDA-243 PO (16:48)
[2024-06-21] MEDS ORDERED: PANT20TA18 PO (16:48)
--- NOTE | 2024-06-21 16:48 | ERN ---
ED Note History of Present Illness Stated Complaint: NAUSEA,ABDOMINAL PAIN Chief Complaint: Abdominal Pain Time Seen by MD: 14:38 Time Seen by Midlevel: 14:38 Dictation: The patient is a 28-year-old female with no significant past medical history who presents to the emergency department with complaints of right upper abdominal pain , epigastric pain associated with nausea onset yesterday. Denies any fevers, vomiting or diarrhea, constipation. Allergies: Coded Allergies: No Known Drug Allergies (Unverified Allergy, Unknown, 10/08/21) prednisone (Unverified Allergy, Unknown, 01/25/22) Home Meds Active Scripts Ondansetron (Ondansetron Odt) 4 Mg Tab.rapdis, 4 MG PO Q6HPRN PRN for nausea, #16 TAB 0 Refills Prov:PEG MAURICIO BUTTER LIQUEFIER 06/21/24 Pantoprazole Sodium (Pantoprazole Sodium) 20 Mg Tablet.dr, 1 TAB PO DAILY for 30 Days, #30 TAB 0 Refills Prov:PEG MAURICIO BUTTER LIQUEFIER 06/21/24 Nitrofurantoin/Nitrofuran Mac (Macrobid) 100 Mg Cap, 1 CAP PO BID for 7 Days, #14 CAP 0 Refills Prov:MARGARITO DEAL LABOR CONTRACTOR 02/27/24 Ondansetron (Ondansetron Odt) 4 Mg Tab.rapdis, 4 MG PO TID PRN for NAUSEA/VOMITING, #10 TAB Prov:SARAN HANEY BUTTER LIQUEFIER 07/07/22 Cyclobenzaprine HCl (Cyclobenzaprine HCl) 5 Mg Tablet, 10 MG PO every 8 hours for spasm pain, #21 TAB Prov:JEANNE MCKOY NP 01/25/22 Cephalexin Monohydrate (Keflex) 500 Mg Cap, 500 MG PO TID for 7 Days, #21 CAP 0 Refills Prov:LOC FRIEDMAN MD 12/15/21 Prednisone (Prednisone) 5 Mg Tablet, 5 MG PO BID for 10 Days, #20 TAB Prov:CHEKO QUIÑONES MD 11/16/21 Loratadine (Loratadine) 10 Mg Tablet, 10 MG PO DAILY for 30 Days, #30 TAB Prov:CHEKO QUIÑONES MD 11/16/21 Diclofenac Sodium (Voltaren Arthritis Pain) 20 Gm Gel..gram., 20 GM TP BID for 7 Days, #30 TUBE Prov:CHEKO QUIÑONES MD 11/04/21 Ondansetron (Ondansetron Odt) 4 Mg Tab.rapdis, 4 MG PO TIDP, #21 TAB Prov:DANO AVELAR 10/13/21 Naproxen (Naprosyn) 500 Mg Tablet, 500 MG PO BIDPC, #60 TAB Prov:DANO AVELAR 10/13/21 Meclizine HCl (Meclizine HCl) 12.5 Mg Tablet, 12.5 MG PO TID, #30 TAB Prov:DANO AVELAR 10/13/21 Ondansetron (Ondansetron Odt) 4 Mg Tab.rapdis, 4 MG PO TID PRN for NA USEA/VOMITING, #15 TAB Prov:SARAN HANEY 10/08/21 Past Medical History Past Medical History: No Pertinent History Additional Past Medical Hx: VERTIGO Surgical History: None Surgical History Other: RT EAR TUBE PLACEMENT Family History: Negative Social History: Negative, Other History: Not Applicable LMP: Jun 14, 2024 : 5 Para: 3 Aborts: 2 RN Note Reviewed/Agreed w/PFSH: Yes Review of System Dictation Constitutional: Negative for fever,chills, and weight loss Eyes: Negative for injury, pain,redness, and discharge ENT: Negative for injury,pain or swelling Cardiovascular: Negative for chest pain, palpitations, and edema Respiratory: Negative for shortness of breath, cough, and wheezing, Abdomen/GI: Negative for vomiting, diarrhea, and constipation positive for abdominal pain, nausea, Back: Negative for injury and pain : Negative for injury, bleeding and discharge MS/Extremity: Negative for injury and deformity Skin: Negative for rash, and discoloration Neuro: Negative for headache, weakness, numbness, tingling, and seizure Psych: Negative for suicide ideation, homicidal ideation, and hallucinations Initial Vital Sign VS Vital Signs Date Time Temp Pulse Resp B/P (MAP) Pulse Ox O2 Delivery O2 Flow Rate FiO2 06/21/24 15:17 98.6 97 20 125/73 99 Room Air 0 06/21/24 16:40 21 Physical Exam Dictation Vital Signs reviewed General Appearance: Alert, oriented x 3, no acute distress, well developed, nourished. Head and Face: non-traumatic. Eyes: PERRL, pink conjunctivas, eyelid no trauma, anterior chamber with arcus senilis. Ears: Pinnas intact and no signs of trauma or erythema ear canals clear and no discharge TM no erythema Nose: No discharge, no bleeding. Oropharynx: Mouth normal, tongue pink. pharynx clear,no erythema, tonsils no exudates, no abscesses noted, mucous membrane moist Neck: Supple, non-tender, no thyromegaly, no masses, no JVD, no bruits Breast:Deferred Chest:No tenderness, no crepitus, no paradoxical movement, no retractions Lungs:Clear, well-ventilated, symmetric, no rales, no wheezing, no rhonchi, no stridor, good breath sounds bilaterally Heart: Regular rate, regular rhythm, no murmur, no gallops Vascular: no peripheral edema, Abdomen: Soft, positive bowel sounds, nondistended, no guarding, nontender, no rebound, no masses no hepatomegaly, no splenomegaly, no Rosario's sign, no hernias. Rectal: Deferred Genital: Deferred Neurological: Normal speech, motor function intact, sensory function intact Musculoskeletal: Neck nontender, full range of motion, back nontender, full range of motion, Extremities: nontender, full range of motion Skin: Color pink, dry, no turgor, no rash, no lacerations, no abrasions, no contusions. Lymphatic: Deferred Results (Laboratory/Radiology) Laboratory/Radiology Laboratory Tests Test 06/21/24 15:15 06/21/24 15:34 Urine Color COLORLESS (YELLOW) Urine Appearance CLEAR (CLEAR) Urine pH 6.5 (5.0-8.0) Urine Specific [place] 1.002 (1.001-1.031) Urine Protein NEGATIVE mg/dL (NEGATIVE) Urine Glucose (UA) NEGATIVE mg/dL (NEGATIVE) Urine Ketones NEGATIVE mg/dL (NEGATIVE) Urine Occult Blood NEGATIVE (NEGATIVE) Urine Nitrate NEGATIVE (NEGATIVE) Urine Bilirubin NEGATIVE mg/dL (NEGATIVE) Urine Urobilinogen 0.2 mg/dL (0.2-1.0) Urine Leukocyte Esterase NEGATIVE Barbara/uL Urine HCG, Qualitative NEGATIVE (NEGATIVE) White Blood Count 8.6 K/uL (4.8-10.8) Red Blood Count 4.84 MIL/uL (4.00-5.50) Hemoglobin 13.6 g/dL (12.0-16.0) Hematocrit 42.8 % (36-48) Mean Corpuscular Volume 88.4 fL (79-99) Mean Corpuscular Hemoglobin 28.1 pg (27.0-33.0) Mean Corpuscular Hemoglobin Concent 31.8 g/dL (32.0-36.0) L Red Cell Distribution Width 13.4 % (11.0-15.5) Platelet Count 318 K/uL (130-400) Mean Platelet Volume 9.9 fL (7.5-10.5) Immature Granulocyte % (Auto) 0.2 % (0-1) Neutrophils (%) (Auto) 64.1 % (40.0-77.0) Lymphocytes (%) (Auto) 24.8 % (21.0-51.0) Monocytes (%) (Auto) 7.8 % (3.0-13.0) Eosinophils (%) (Auto) 2.5 % (0.0-8.0) Basophils (%) (Auto) 0.6 % (0.0-5.0) Neutrophils # (Auto) 5.5 K/uL (1.8-7.7) Lymphocytes # (Auto) 2.1 K/uL (1.0-4.8) Monocytes # (Auto) 0.7 K/uL (0.1-1.0) Eosinophils # (Auto) 0.21 K/uL (0.00-0.70) Basophils # (Auto) 0.05 K/uL (0.00-0.20) Absolute Immature Granulocyte (auto 0.02 K/uL (0-1) Nucleated Red Blood Cells 0.0 % (0.0-0.19) Sodium Level 141 mmol/L (136-145) Potassium Level 3.4 mmol/L (3.5-5.1) L Chloride Level 102 mmol/L (101-111) Carbon Dioxide Level 27 mmol/L (21-32) Blood Urea Nitrogen 13 mg/dL (7-18) Creatinine 0.6 mg/dL (0.5-1.0) Glomerular Filtration Rate Calc 125 mL/min (>90) Random Glucose 86 mg/dL (70-105) Total Calcium 9.2 mg/dL (8.5-10.1) Total Bilirubin 0.4 mg/dL (0.2-1.0) Direct Bilirubin 0.1 mg/dL (0.0-0.3) Aspartate Amino Transf (AST/SGOT) 13 U/L (10-37) Alanine Aminotransferase (ALT/SGPT) 17 U/L (12-78) Alkaline Phosphatase 66 U/L (50-136) Total Protein 7.7 g/dL (6.0-8.3) Albumin 3.8 g/dL (3.5-5.0) Lipase 29 U/L (16-77) REASON: Adominal Pain ORDERING PHYSICIAN: PEG MAURICIO PROCEDURE: [id number] - US ABDOMINAL RUQ\LTD US ABDOMINAL RUQ\E\LTD HISTORY: Right upper quadrant pain COMPARISON: None TECHNIQUE: Right upper quadrant abdominal ultrasound study was performed. FINDINGS: Liver measures 17.4 cm. The visualized portion of the pancreas is within normal limits. Liver is echogenic consistent with liver parenchymal disease. No gallstone is seen. Common duct measures 5 mm. No evidence of gallbladder wall thickening is seen. Right kidney measures 11.1 x 4.2 x 4.5 cm. No hydronephrosis is seen of the right kidney. IMPRESSION: 1. No gallstones or ductal dilatation is seen. 2. No hydronephrosis is seen. Labs Reviewed?: Yes ED Course ED Course Orders Procedure Category Date Status Time Cbc With Differential LAB 06/21/24 Complete 14:56 ,Urine Test LAB 06/21/24 Complete 14:56 Urinalysis Profile LAB 06/21/24 Complete 14:56 Us Abdominal Ruq\Ltd US 06/21/24 Resulted 14:56 0.9%Nacl 1000ml (Ns PHA 06/21/24 Complete 1000ml) 15:00 Morphine 4mg Syg PHA 06/21/24 Complete (Morphine 4mg Syg) 15:00 Ondansetron 4mg Inj PHA 06/21/24 Complete (Zofran 4mg Inj) 15:00 Pantoprazole 40mg Inj PHA 06/21/24 Complete (Protonix 40mg Inj 15:00 Lipase LAB 06/21/24 Complete 14:56 Basic Metabolic Panel LAB 06/21/24 Complete 14:56 Hepatic Function Panel LAB 06/21/24 Complete 14:56 Current Medications Medications (Trade) Dose Ordered Sig/Nannette Route PRN Reason Start Time Stop Time Status Last Admin Dose Admin Morphine Sulfate (morPHINE 4MG SYG) 4 mg ONCE ONCE IVP 06/21/24 15:00 06/21/24 15:01 DC Ondansetron HCl (zoFRAN 4MG INJ) 4 mg ONCE ONCE IVP 06/21/24 15:00 06/21/24 15:01 DC 06/21/24 15:42 Pantoprazole Sodium (PROTonix 40MG INJ) 40 mg ONCE ONCE IVP 06/21/24 15:00 06/21/24 15:01 DC 06/21/24 15:42 Sodium Chloride 1,000 ml @ 0 mls/hr ONCE ONCE IV 06/21/24 15:00 06/21/24 15:01 DC 06/21/24 15:42 Vital Signs Date Time Temp Pulse Resp B/P (MAP) Pulse Ox O2 Delivery O2 Flow Rate FiO2 06/21/24 17:10 98.6 81 20 118/70 99 Room Air* 0 21 06/21/24 16:40 98.6 97 20 125/73 99 Room Air* 0 21 06/21/24 15:17 98.6 97 20 125/73 99 Room Air 0 Medical Decision Making MDM The patient is a 28-year-old female with no significant past medical history who presents to the emergency department with complaints of right upper abdominal pain , epigastric pain associated with nausea onset yesterday. Denies any fevers, vomiting or diarrhea, constipation. CBC showed no leukocytosis no anemia, chemistry showed mild hypokalemia, GFR of 125, normal AST ALT, negative lipase, urinalysis unremarkable. Ultrasound revealed no gallstones or ductal dilation no hydronephrosis. Patient reports improving in pain with medication. We will be discharged to follow up with PCP. Patient in no acute distress. Differential diagnosis: Gastroenteritis, cholelithiasis, cholecystitis, biliary colic, dehydration, gastritis Need for hospitalization: Patient does not meet criteria for hospitalization. There are no social concerns with this patient. DX & DISP Disposition: Discharge Departure Impression: Primary Impression: Gastritis Additional Impression: Abdominal pain Condition: Stable Scripts Ondansetron (Ondansetron Odt) 4 Mg Tab.rapdis 4 MG PO Q6HPRN PRN for nausea, #16 TAB 0 Refills Prov: PEG MAURICIO BUTTER LIQUEFIER 06/21/24 Pantoprazole Sodium (Pantoprazole Sodium) 20 Mg Tablet. 1 TAB PO DAILY for 30 Days, #30 TAB 0 Refills Prov: PEG MAURICIO 06/21/24 Additional Instructions: Please follow up with the primary doctor in 1-2 days. If symptoms worsen please return to ER. FOLLOW-UP WITH PRIMARY CARE PROVIDER IN 1 TO 2 DAYS. TAKE MEDICATIONS DIRECTED HERE IN THE EMERGENCY ROOM. OKAY TO CONTINUE HOME MEDICATIONS UNLESS OTHERWISE DISCUSSED DURING YOUR VISIT IN THE EMERGENCY ROOM TODAY. RETURN TO YOUR NEAREST EMERGENCY ROOM IF SYMPTOMS WORSEN OR IF THERE IS NO IMPROVEMENT. CALL 911 IF YOU NEED IMMEDIATE ASSISTANCE. TAKE TYLENOL OR MOTRIN [id number] NEEDED AND IF NO CONTRAINDICATIONS ARE PRESENT. INCREASE ORAL HYDRATION. A WOUND CULTURE OR URINE CULTURE WAS ORDERED HERE IN THE EMERGENCY ROOM DEPARTMENT PLEASE FOLLOW-UP WITH PRIMARY CARE PROVIDER AND ADVISE THEM TO GET REPEAT PORTS FROM OUR FACILITY. IF YOU HAD ANY [place] WRAP/SPLINTS THAT WERE APPLIED HERE, PLEASE DO NOT REMOVE THEM UNTIL YOU SEE YOUR PRIMARY CARE OR SPECIALTY. Referrals: KATHY HOPSON MD (PCP) Time of Disposition: 16:48 I have reviewed the case, and I agree with, Diagnosis and Plan I performed a substantive portion of the visit. I have reviewed and personally made and approve the management plan that is documented in the notes by myself with JAMISON/resident. I acknowledged full responsibility for the patient's management plan. PEG MAURICIO Jun 21, 2024 16:48 MINISTERIO STONE DO Jun 23, 2024 08:20
[2024-06-21 17:10] VITALS: BP 118/70; PULSE 81; RESP 20; TEMP 98.6; O2SAT 99
== END 2024-06-21 17:16 | disposition home or self-care (01) ==
LOC: EDH 14:37
DX: K29.70 Gastritis, unspecified, without bleeding (principal); Z79.1 Long term (current) use of non-steroidal anti-inflammatories (NSAID); Z79.52 Long term (current) use of systemic steroids; Z88.8 Allergy status to other drugs, medicaments and biological substances
CPT/HCPCS: 99285; 96374; 76705; 96361; 96375; 80076; 80048; 83690; 85025; 81003; 81025; 36415; J7030; J2405; J2470

== ENCOUNTER 2024-06-24 12:10 | Emergency (ER) | payer OTHER ==
[~2024-06-24] VITALS: Ht 160 cm; Wt 90.7 kg
[~2024-06-24 12:10] MED LIST changes: +PANT20TA18 PO
[2024-06-24 12:15] VITALS: BP 111/59; PULSE 88; RESP 16; TEMP 98.3
--- NOTE | 2024-06-24 13:03 | ERN ---
ED Note History of Present Illness Stated Complaint: SORE THROAT Chief Complaint: Sore Throat Time Seen by MD: 12:17 Time Seen by Midlevel: 12:17 Dictation: 28-year-old female with a history of gastritis, presents to the ED for evaluation of sore throat. Patient reports she was evaluated at PCP and given a road shot of Rocephin for possible infection. No shortness of breath. Patient was able to talk in full complete sentences without any respiratory distress. No fever, cough, congestion Allergies: Coded Allergies: prednisone (Unverified Allergy, Unknown, 01/25/22) Home Meds Active Scripts Ondansetron (Ondansetron Odt) 4 Mg Tab.rapdis, 4 MG PO Q6HPRN PRN for nausea, #16 TAB 0 Refills Prov:PEG MAURICIO DOG BEHAVIORIST 06/21/24 Pantoprazole Sodium (Pantoprazole Sodium) 20 Mg Tablet.dr, 1 TAB PO DAILY for 30 Days, #30 TAB 0 Refills Prov:PEG MAURICIO DOG BEHAVIORIST 06/21/24 Nitrofurantoin/Nitrofuran Mac (Macrobid) 100 Mg Cap, 1 CAP PO BID for 7 Days, #14 CAP 0 Refills Prov:MARGARITO DEAL FREELANCE PATTERNMAKER 02/27/24 Ondansetron (Ondansetron Odt) 4 Mg Tab.rapdis, 4 MG PO TID PRN for NAUSEA/VOMITING, #10 TAB Prov:SARAN HANEY DOG BEHAVIORIST 07/07/22 Cyclobenzaprine HCl (Cyclobenzaprine HCl) 5 Mg Tablet, 10 MG PO every 8 hours for spasm pain, #21 TAB Prov:JEANNE MCKOY NP 01/25/22 Cephalexin Monohydrate (Keflex) 500 Mg Cap, 500 MG PO TID for 7 Days, #21 CAP 0 Refills Prov:LOC FRIEDMAN MD 12/15/21 Prednisone (Prednisone) 5 Mg Tablet, 5 MG PO BID for 10 Days, #20 TAB Prov:CHEKO QUIÑONES MD 11/16/21 Loratadine (Loratadine) 10 Mg Tablet, 10 MG PO DAILY for 30 Days, #30 TAB Prov:CHEKO QUIÑONES MD 11/16/21 Diclofenac Sodium (Voltaren Arthritis Pain) 20 Gm Gel..gram., 20 GM TP BID for 7 Days, #30 TUBE Prov:CHEKO QUIÑONES MD 11/04/21 Ondansetron (Ondansetron Odt) 4 Mg Tab.rapdis, 4 MG PO TIDP, #21 TAB Prov:DANO AVELAR 10/13/21 Naproxen (Naprosyn) 500 Mg Tablet, 500 MG PO BIDPC, #60 TAB Prov:DANO AVELAR 10/13/21 Meclizine HCl (Meclizine HCl) 12.5 Mg Tablet, 12.5 MG PO TID, #30 TAB Prov:DANO AVELAR 10/13/21 Ondansetron (Ondansetron Odt) 4 Mg Tab.rapdis, 4 MG PO TID PRN for NAUSEA/VOMI TING, #15 TAB Prov:SARAN HANEY 10/08/21 Past Medical History Past Medical History: No Pertinent History Additional Past Medical Hx: VERTIGO Surgical History: None Surgical History Other: RT EAR TUBE PLACEMENT Family History: Negative Social History: Negative, Other History: Not Applicable LMP: Jun 14, 2024 : 5 Para: 3 Aborts: 2 RN Note Reviewed/Agreed w/PFSH: Yes Review of System Dictation Constitutional: Negative for fever,chills, and weight loss Eyes: Negative for injury, pain,redness, and discharge ENT: Negative for injury,pain or swelling Cardiovascular: Negative for chest pain, palpitations, and edema Respiratory: Negative for shortness of breath, cough, and wheezing, Abdomen/GI: Negative for abdominal pain, nausea, vomiting, diarrhea, and constipation Back: Negative for injury and pain : Negative for injury, bleeding and discharge MS/Extremity: Negative for injury and deformity Skin: Negative for rash, and discoloration Neuro: Negative for headache, weakness, numbness, tingling, and seizure Psych: Negative for suicide ideation, homicidal ideation, and hallucinations Review of Systems: was completed Initial Vital Sign VS Vital Signs Date Time Temp Pulse Resp B/P (MAP) Pulse Ox O2 Delivery O2 Flow Rate FiO2 06/24/24 12:15 98.2 88 16 111/59 98 Room Air 0 Physical Exam Dictation General: awake, alert, NAD Head/Face: Normocephalic, atraumatic Eyes: PERRL, EOMI, vision at baseline ENT: Mildly erythematous posterior pharynx, no exudates, uvula midline, TMs clear Neck: Trachea midline, supple, no nuchal rigidity Cardiovascular: RRR, normal S1/S2, No MRGs, no JVD Respiratory: CTAB, no respiratory distress, No rales or wheezes Abdomen: Soft, non-tender, non-distended, normal bowel sounds, no guarding or rebound. Skin: Warm, dry, normal turgor, no rash MS/Extremity: Pulses equal, no cyanosis, neurovascular intact, FROM Neuro: COAx4, GCS 15, strength 5/5, CN 2-12 intact, normal cerebellar exam, normal gait, Psych: Normal behavior, mood, and affect normal Results (Laboratory/Radiology) Laboratory/Radiology Laboratory Tests Test 06/24/24 12:25 Group A Streptococcus Rapid negative (NEGATIVE) Labs Reviewed?: Yes ED Course ED Course Orders Procedure Category Date Status Time Rapid (Group A Strep) LAB 06/24/24 Complete 12:22 Vital Signs Date Time Temp Pulse Resp B/P (MAP) Pulse Ox O2 Delivery O2 Flow Rate FiO2 06/24/24 12:15 98.2 88 16 111/59 98 Room Air 0 Medical Decision Making MDM MDM: Differential diagnosis: Strep pharyngitis, viral pharyngitis, gastritis Need for hospitalization: Patient does meet criteria for hospitalization. Need for emergency major/minor surgery: No I independently interpreted the test that were performed, results were reviewed by me and considered findings on radiology if ordered. Medical management and examination interpretation discussions were had by me with other qualified healthcare professionals as indicated for the patient's care. 28-year-old female with a history of gastritis, presents to the ED for evaluation of sore throat. Patient reports she was evaluated at PCP and given a road shot of Rocephin for possible infection. No shortness of breath. Patient was able to talk in full complete sentences without any respiratory distress. No fever, cough, congestion. Patient satting at 98% on room air. No respiratory distress. Patient able to talk in full complete sentences without any discomfort. Oropharynx is clear with no signs of swelling. Swabs negative for strep pharyngitis. Patient p.o. tolerant. Patient was discharged home with famotidine to help with gastritis since she has stated she was started with the symptoms after taking the pantoprazole for the past few days, and recommended to follow up with PCP. Recommended to follow up with PCP if continues for possible referral to GI for endoscopy. Return precautions discussed with patient. Patient verbalized understanding, agree with plans, and all questions were answered at this time. DX & DISP Disposition: Discharge Departure Impression: Primary Impression: Sore throat Condition: Stable Scripts Famotidine (Famotidine) 20 Mg Tablet 1 TAB PO BID for 30 Days, #60 TAB 0 Refills Prov: CORONA REILLY 06/24/24 Additional Instructions: DISCHARGE HOME. REST. FOLLOW UP WITH PRIMARY CARE DRCindy IN 24 HOURS. RETURN TO THE ER FOR ANY ACUTE CHANGE. PATIENT WAS ALSO ADVISED TO FOLLOW-UP WITH PRIMARY CARE PHYSICIAN IN 1 TO 2 DAYS FOR CONTINUED MONITORING. ALL INSTRUCTIONS WERE GIVEN TO LAYMANS TERM AND PATIENT AGREEABLE TO DISCHARGE AND PROPER FOLLOW-UP. Referrals: KATYH HOPSON MD (PCP) I have reviewed the case, Diagnosis and Plan CORONA REILLY Jun 24, 2024 13:03
[2024-06-24] MEDS ORDERED: FAMO20TA8 PO (14:00)
--- NOTE | 2024-06-24 14:15 | NUR ---
PATIENT CALLED MULTIPLE TIMES TO TRIAGE AREA. PATIENT LEFT WITHOUT DISCHARGE INSTRUCTIONS OR PRESCRIPTIONS.
== END 2024-06-24 14:15 | disposition left against medical advice (07) ==
LOC: EDH 12:10
DX: J02.9 Acute pharyngitis, unspecified (principal); Z79.1 Long term (current) use of non-steroidal anti-inflammatories (NSAID); Z79.52 Long term (current) use of systemic steroids; Z79.899 Other long term (current) drug therapy; Z88.8 Allergy status to other drugs, medicaments and biological substances
CPT/HCPCS: 87880; 99283

== ENCOUNTER 2024-06-25 01:59 | Emergency (ER) | payer OTHER ==
[~2024-06-25] VITALS: Ht 160 cm; Wt 97.5 kg
[~2024-06-25 01:59] MED LIST changes: +FAMO20TA8 PO
[2024-06-25 02:05] VITALS: TEMP 98.5
[2024-06-25] MEDS ORDERED: hydroMORPHone 0.5 MG SYG (0.5MG/0.5ML) IVP ONE (02:30)
--- NOTE | 2024-06-25 02:30 | ERN ---
General Chief Complaint: Dizzy/Light Headed Stated Complaint: DIZZINESS, N/D Time Seen by MD: 02:10 Source: patient History of Present Illness Initial Comments Patient is a 28-year-old female with a history of mastoiditis comes in with akila preston that she noticed when she stood up and almost fell. She has nausea associated with the vertigo but no vomiting for the past few days. Positive diarrhea. In addition she states that she has had some recent bouts of epigastric tightness for which she is taking sucralfate and omeprazole. Timing/Duration: 1 week Allergies: Coded Allergies: prednisone (Unverified Allergy, Unknown, 01/25/22) Home Meds Active Scripts Famotidine (Famotidine) 20 Mg Tablet, 1 TAB PO BID for 30 Days, #60 TAB 0 Refills Prov:CORONA REILLY 06/24/24 Ondansetron (Ondansetron Odt) 4 Mg Tab.rapdis, 4 MG PO Q6HPRN PRN for nausea, #16 TAB 0 Refills Prov:PEG MAURICIO RAILWAY SWITCHMAN 06/21/24 Pantoprazole Sodium (Pantoprazole Sodium) 20 Mg Tablet.dr, 1 TAB PO DAILY for 30 Days, #30 TAB 0 Refills Prov:PEG MAURICIO RAILWAY SWITCHMAN 06/21/24 Nitrofurantoin/Nitrofuran Mac (Macrobid) 100 Mg Cap, 1 CAP PO BID for 7 Days, #14 CAP 0 Refills Prov:MARGARITO DEAL PIE BAKER 02/27/24 Ondansetron (Ondansetron Odt) 4 Mg Tab.rapdis, 4 MG PO TID PRN for NAUSEA/VOMITING, #10 TAB Prov:SARAN HANEY RAILWAY SWITCHMAN 07/07/22 Cyclobenzaprine HCl (Cyclobenzaprine HCl) 5 Mg Tablet, 10 MG PO every 8 hours for spasm pain, #21 TAB Prov:JEANNE MCKOY NP 01/25/22 Cephalexin Monohydrate (Keflex) 500 Mg Cap, 500 MG PO TID for 7 Days, #21 CAP 0 Refills Prov:LOC FRIEDMAN MD 12/15/21 Prednisone (Prednisone) 5 Mg Tablet, 5 MG PO BID for 10 Days, #20 TAB Prov:CHEKO QUIÑONES MD 11/16/21 Loratadine (Loratadine) 10 Mg Tablet, 10 MG PO DAILY for 30 Days, #30 TAB Prov:CHEKO QUIÑONES MD 11/16/21 Diclofenac Sodium (Voltaren Arthritis Pain) 20 Gm Gel..gram., 20 GM TP BID for 7 Days, #30 TUBE Prov:CHEKO QUIÑONES MD 11/04/21 Ondansetron (Ondansetron Odt) 4 Mg Tab.rapdis, 4 MG PO TIDP, #21 TAB Prov:DANO AVELAR 10/13/21 Naproxen (Naprosyn) 500 Mg Tablet, 500 MG PO BIDPC, #60 TAB Prov:DANO AVELAR 10/13/21 Meclizine HCl (Meclizine HCl) 12.5 Mg Tablet, 12.5 MG PO TID, #30 TAB Prov:DANO AVELAR 10/13/21 Ondansetron (Ondansetron Odt) 4 Mg Tab.rapdis, 4 MG PO TID PRN for NAUSEA/VOMITING, #15 TAB Prov:SARAN HANEY 10/08/21 Past Medical History Past Medical History: Other Medical History Other: VERTIGO Past Surgical History: None Surgical History Other: RT EAR TUBE PLACEMENT Family History Family History: Negative Social History Social History: Negative, Other Female( History) History: Not Applicable LMP: Jun 18, 2024 : 5 Para: 3 Aborts: 2 Constitutional: (-) chills, (-) diaphoresis, (-) fever, (-) malaise, (-) weakness, (-) other documentation EENTM: (-) eye pain, (-) blurred vision, (-) tearing, (-) double vision, (-) ear pain, (-) ear discharge, (-) nose pain, (-) nose congestion, (-) throat pain, (-) Throat swelling, (-) mouth pain, (-) tooth pain, (-) mouth swelling, (-) other documentation Respiratory: (-) cough, (-) orthopnea, (-) short of breath, (-) stridor, (-) wheezing, (-) other documentation Cardiovascular: (-) chest pain, (-) edema, (-) palpitations, (-) syncope, (-) dyspnea on exertion, (-) other documentation Gastrointestinal/Abdominal: (+) nausea, (+) diarrhea Genitourinary: (-) vaginal discharge, (-) vaginal bleeding, (-) dysuria, (-) f requency, (-) hematuria, (-) pain, (-) other documentation Musculoskeletal: (+) Neck pain, (+) back pain, (+) Flank Pain, (+) joint pain, (+) joint swelling, (+) muscle pain, (+) muscle stiffness, (+) gout, (+) other documentation Skin: (-) laceration, (-) contusion, (-) abrasion, (-) abscess, (-) rash, (-) change in color, (-) change in hair, (-) change in nails, (-) diaphoresis, (-) dryness, (-) other documentation Neuro: (-) altered mental status, (-) headache, (-) syncope, (-) paralysis, (-) numbness, (-) seizure, (-) pre-existing deficit, (-) tremors, (-) weakness, (-) dizziness, (-) slurred speech, (-) vertigo, (-) other documentation Physical Exam General Appearance: (+) no apparent distress Orientation: (+) oriented x 3 Eye: bilateral eye normal inspection, bilateral eye PERRL, bilateral eye EOMI Ear, Nose, Throat: (+) hearing grossly normal, (+) normal ENT inspection Ear, Nose, Throat Comment Right tympanic membrane is normal. I was able to recreate her dizziness spells simply by lowering the head of the bed to flat and then raising it up again to 45. Patient also recreated it by getting up herself. During these times I notice no jittery movements of her eyes. Neck: (+) normal inspection, (+) supple, (+) full range of motion, (+) no JVD, (+) tender Neck Comment She does have some tenderness near the insertion point of the sternocleidomastoid muscle on the right, buttock could also be some mandibular on the right near the jaw angle Respiratory: (+) chest non-tender, (+) lungs clear, (+) well ventilated Heart: (+) regular, (+) no gallop Vascular: (+) no edema, (+) normal peripheral pulse Gastrointestinal: (+) soft, (+) non-tender, (+) bowel sound present Results Laboratory and Microbiology Lab and Micro Result Laboratory Tests Test 06/25/24 03:12 06/25/24 04:15 White Blood Count 7.7 K/uL (4.8-10.8) Red Blood Count 4.91 MIL/uL (4.00-5.50) Hemoglobin 14.2 g/dL (12.0-16.0) Hematocrit 43.2 % (36-48) Mean Corpuscular Volume 88.0 fL (79-99) Mean Corpuscular Hemoglobin 28.9 pg (27.0-33.0) Mean Corpuscular Hemoglobin Concent 32.9 g/dL (32.0-36.0) Red Cell Distribution Width 13.3 % (11.0-15.5) Platelet Count 333 K/uL (130-400) Mean Platelet Volume 10.5 fL (7.5-10.5) Immature Granulocyte % (Auto) 0.3 % (0-1) Neutrophils (%) (Auto) 57.7 % (40.0-77.0) Lymphocytes (%) (Auto) 30.5 % (21.0-51.0) Monocytes (%) (Auto) 8.2 % (3.0-13.0) Eosinophils (%) (Auto) 2.5 % (0.0-8.0) Basophils (%) (Auto) 0.8 % (0.0-5.0) Neutrophils # (Auto) 4.4 K/uL (1.8-7.7) Lymphocytes # (Auto) 2.3 K/uL (1.0-4.8) Monocytes # (Auto) 0.6 K/uL (0.1-1.0) Eosinophils # (Auto) 0.19 K/uL (0.00-0.70) Basophils # (Auto) 0.06 K/uL (0.00-0.20) Absolute Immature Granulocyte (auto 0.02 K/uL (0-1) Nucleated Red Blood Cells 0.0 % (0.0-0.19) Sodium Level 140 mmol/L (136-145) Potassium Level 3.6 mmol/L (3.5-5.1) Chloride Level 99 mmol/L (101-111) L Carbon Dioxide Level 28 mmol/L (21-32) Blood Urea Nitrogen 7 mg/dL (7-18) Creatinine 0.7 mg/dL (0.5-1.0) Glomerular Filtration Rate Calc 121 mL/min (>90) Random Glucose 92 mg/dL (70-105) Total Calcium 8.8 mg/dL (8.5-10.1) Urine Color COLORLESS (YELLOW) Urine Appearance CLEAR (CLEAR) Urine pH 6.0 (5.0-8.0) Urine Specific [place] 1.003 (1.001-1.031) Urine Protein NEGATIVE mg/dL (NEGATIVE) Urine Glucose (UA) NEGATIVE mg/dL (NEGATIVE) Urine Ketones NEGATIVE mg/dL (NEGATIVE) Urine Occult Blood NEGATIVE (NEGATIVE) Urine Nitrate NEGATIVE (NEGATIVE) Urine Bilirubin NEGATIVE mg/dL (NEGATIVE) Urine Urobilinogen 0.2 mg/dL (0.2-1.0) Urine Leukocyte Esterase 25 Barbara/uL (NEGATIVE) H Urine RBC 0-1 /HPF (0-1) Urine WBC 6-10 /HPF (0-1) H Urine Squamous Epithelial Cells MOD /HPF (0-2) Urine Bacteria FEW /HPF (None Seen) Urine HCG, Qualitative NEGATIVE (NEGATIVE) MDM Patient's symptoms are consistent with a benign positional vertigo. Could also be dehydration or labyrinthitis. Her gastritis she says has improved with the sucralfate that was given to her fairly recently but not with the pantoprazole. I will give her a GI cocktail for her stomach and a Flexeril for her neck pain. I will order some CBC and BMP and obtain orthostatic vital signs. Laboratory studies were normal. Orthostatic vital signs were normal. Patient refused all of the medications that I had written for her. She also requested that the IV fluids as her stomach was starting to act after about 500 cc. She blames her dizziness and vertigo on her mastoiditis. Of note her WBCs are normal. Patient does have neck pain associated with her right sternocleido mastoid muscle. I recommended warm compresses Tylenol and ibuprofen for that. I will discharge the patient home. ED Course Orders Procedure Category Date Status Time Hydromorphone 0.5mg PHA 06/25/24 Complete Syg (Dilaudid 0.5mg 02:30 Orthostatic Vital CPOE 06/25/24 Transmitted Signs 02:42 Basic Metabolic Panel LAB 06/25/24 Complete 02:42 Cbc With Differential LAB 06/25/24 Complete 02:42 0.9%Nacl 1000ml (Ns PHA 06/25/24 Complete 1000ml) 03:00 Cyclobenzaprine Hcl PHA 06/25/24 Complete (Cyclobenzaprine Hcl 03:00 ,Urine Test LAB 06/25/24 Complete 02:55 Urinalysis Profile LAB 06/25/24 Complete 02:55 Lidocaine Hcl 2% PHA 06/25/24 Complete Viscous (Lidocaine Hcl 03:00 Mag/Alum/Simeth 30ml PHA 06/25/24 Complete (Maalox Plus 30ml) 03:00 Dicyclomine Hcl PHA 06/25/24 Complete (Bentyl 10mg/5ml 03:00 Culture Urine CARMEN 06/25/24 In Process 04:27 Current Medications Medications (Trade) Dose Ordered Sig/Nannette Route PRN Reason Start Time Stop Time Status Last Admin Dose Admin Al Hydroxide/Mg Hydroxide (MAALox PLUS 30ML) 30 ml ONCE ONCE PO 06/25/24 03:00 06/25/24 03:01 DC 06/25/24 03:05 Cyclobenzaprine HCl (Cyclobenzaprine HCl) 10 mg ONCE ONCE PO 06/25/24 03:00 06/25/24 03:01 DC 06/25/24 03:05 Dicyclomine HCl (Bentyl 10mg/5ml Syrup) 10 mg ONCE ONCE PO 06/25/24 03:00 06/25/24 03:01 DC 06/25/24 03:06 Hydromorphone HCl (DiLAUDid 0.5MG INJ) 0.5 mg ONCE ONCE IVP 06/25/24 02:30 06/25/24 02:28 DC Lidocaine HCl (Lidocaine HCl 2% Viscous) 10 ml ONCE ONCE PO 06/25/24 03:00 06/25/24 03:01 DC 06/25/24 03:05 Sodium Chloride 1,000 ml @ 0 mls/hr ONCE ONCE IV 06/25/24 03:00 06/25/24 03:01 DC 06/25/24 03:06 Vital Signs Date Time Temp Pulse Resp B/P (MAP) Pulse Ox O2 Delivery O2 Flow Rate FiO2 06/25/24 03:20 71 14 118/58 99 Room Air* 0 21 25 03:10 68 17 115/62 99 Room Air* 0 06/25/24 03:05 67 16 117/64 100 Room Air* 0 06/25/24 02:05 98.4 69 15 115/75 99 Room Air 0 DX & DISP Disposition: Discharge Departure Impression: Primary Impression: Musculoskeletal pain Condition: Stable Referrals: KATHY HOPSON MD (PCP) LATANYA HOFFMANN MD Jun 25, 2024 02:30
[2024-06-25] MEDS: CYCLOBENZAPRINE HCL 10 MG TABLET PO ONE (03:05)
[2024-06-25] MEDS: MAG/ALUM/SIMETH 30 ML UDCUP PO ONE (03:05)
[2024-06-25] MEDS: LIDOCAINE HCL 2% VISCOUS 15 ML UDCUP PO ONE (03:05)
[2024-06-25] MEDS: 0.9%NACL 1000ML 1,000 ML IV ONE (03:06)
[2024-06-25] MEDS: DICYCLOMINE HCL 10 MG/5 ML ML PO ONE (03:06)
[2024-06-25 03:20] VITALS: BP 118/58; PULSE 71; RESP 14; O2SAT 99
[2024-06-25 03:20] LABS: BASOPHILS # (AUTO) 0.06 K/uL (0.00-0.20); BASOPHILS % (AUTO) 0.8 % (0.0-5.0); EOSINOPHILS # (AUTO) 0.19 K/uL (0.00-0.70); EOSINOPHILS % (AUTO) 2.5 % (0.0-8.0); HEMATOCRIT 43.2 % (36-48); IMMATURE GRANULOCYTE ABSOLUTE 0.02 K/uL (0-1); LYMPHOCYTES # (AUTO) 2.3 K/uL (1.0-4.8); LYMPHOCYTES % (AUTO) 30.5 % (21.0-51.0); MEAN CORPUSCULAR HEMOGLOBIN 28.9 pg (27.0-33.0); MEAN CORPUSCULAR HGB CONC 32.9 g/dL (32.0-36.0); MONOCYTES # (AUTO) 0.6 K/uL (0.1-1.0); MONOCYTES % (AUTO) 8.2 % (3.0-13.0); NEUTROPHILS # (AUTO) 4.4 K/uL (1.8-7.7); NEUTROPHILS % (AUTO) 57.7 % (40.0-77.0); PLATELET COUNT (AUTO) 333 K/uL (130-400); RED BLOOD CELL COUNT(AUTO) 4.91 MIL/uL (4.00-5.50); RED CELL DISTRIBUTION WIDTH 13.3 % (11.0-15.5); WHITE BLOOD COUNT (AUTO) 7.7 K/uL (4.8-10.8)
[2024-06-25 03:28] LABS: CREATININE 0.7 mg/dL (0.5-1.0); POTASSIUM 3.6 mmol/L (3.5-5.1)
[2024-06-25 04:24] LABS: APPEARANCE,URINE CLEAR (CLEAR); BILIRUBIN,URINE NEGATIVE (NEGATIVE); COLOR,URINE COLORLESS (YELLOW); GLUCOSE, URINE (UA) NEGATIVE (NEGATIVE); KETONES,URINE NEGATIVE (NEGATIVE); LEUKOCYTE ESTERASE ,URINE 25 Leu/uL (NEGATIVE); NITRATE,URINE NEGATIVE (NEGATIVE); OCCULT BLOOD,URINE NEGATIVE (NEGATIVE); PROTEIN,URINE NEGATIVE (NEGATIVE); UROBILINOGEN,URINE 0.2 mg/dL (0.2-1.0)
[2024-06-25 04:25] LABS: ADD UA MICROSCOPIC YES
[2024-06-25 04:26] LABS: BACTERIA,URINE FEW /HPF (None Seen); HCG,QUALITATIVE URINE NEGATIVE (NEGATIVE); RBC,URINE 0-1 /HPF (0-1); SQUAMOUS EPITHELIAL CELL,UR MOD /HPF (0-2)
== END 2024-06-25 05:05 | disposition home or self-care (01) ==
LOC: EDH 01:59
DX: M79.18 Myalgia, other site (principal); Z79.1 Long term (current) use of non-steroidal anti-inflammatories (NSAID); Z79.52 Long term (current) use of systemic steroids; Z79.899 Other long term (current) drug therapy; Z88.8 Allergy status to other drugs, medicaments and biological substances
CPT/HCPCS: 99284; 96360; 80048; 85025; 87086; 81001; 81025; 36415; J7030